=== PATIENT | female | born 1940 | race Caucasian/White ===

== ENCOUNTER 2020-06-15 11:45 | Inpatient (IN) | payer OTHER, SELFPAY ==
--- NOTE | ~2020-06-15 | CT_ITS ---
EXAMINATION: CTA chest PE protocol DATE: 06/16/2020 00:24 INDICATION: Shortness of breath. Elevated d-dimer. TECHNIQUE: Computed tomography angiography (CTA) of the chest was performed with 100 mL Omnipaque-350 intravenous contrast timed to evaluate the pulmonary arteries. Coronal maximum intensity projection 3D-reconstructions were created by the technologist. Automated exposure control and iterative reconst ruction technique were employed. Exam dose: 640.85 mGy-cm total exam DLP. COMPARISON: None. FINDINGS: There is diagnostic contrast enhancement of the pulmonary arteries and no evidence of pulmo nary embolism. Cardiomegaly. No pericardial effusion. No pleural effusion. No hilar or mediastinal mass lesion or lymphadenopathy. Mild hilar and mediastinal lymph node promine nce is likely reactive. No thoracic aortic aneurysm or dissection. There is aortic and great vessel a therosclerotic calcification as well as coronary artery calcification. There are patchy groundglass infiltrates of the upper and lower lobes primarily; differential diagnos is includes pneumonia and/or pulmonary edema. Incidental finding of cholelithiasis. Included skeletal structures are unremarkable. IMPRESSION: No evidence of pulmonary embolism Patchy bilateral groundglass infiltrates, which may be secondary to pneumonia and/or pulmonary edema Reviewed, dictated and finalized at [facility]. Reviewed, dictated and finalized at [facility]. IMPRESSION: No evidence of pulmonary embolism Patchy bilateral groundglass infiltrates, which may be secondary to pneumonia a nd/or pulmonary edema
--- NOTE | ~2020-06-15 | XR_ITS ---
EXAMINATION: XR chest 1V portable INDICATION: Shortness of breath, COVID pneumonia TECHNIQUE: Portable AP chest at 0620 hours COMPARISON: 06/16/2020 FINDINGS: There are airspace opacities throughout all lung zones. No pleural effusion or pneumothorax is identified. Cardiomegaly is noted. There is osteoarthritis of the shoulders. IMPRESSION: 1. Diffuse lung disease, in a distribution consistent with COVID 19 pneumonia. Reviewed, dictated and finalized at location [facility]. AL TECHNICIAN
--- NOTE | ~2020-06-15 | US_ITS ---
EXAMINATION: US venous doppler [facility] DATE: 06/15/2020 16:38 INDICATION: Pelvic pain. TECHNIQUE: Grayscale ultrasound images without and with compression and Doppler ultrasound images of the bilateral lower extremity veins were obtained. COMPARISON: None. FINDINGS: The visualized portions of right common femoral vein, profunda (deep) femoral vein, femoral vein, pop liteal vein, peroneal veins, posterior tibial veins, and greater saphenous vein outflow are patent. The visualized portions of left common femoral vein, profunda femoral vein, femoral vein, popliteal v ein, peroneal veins, posterior tibial veins, and greater saphenous vein outflow are patent. IMPRESSION: 1. No deep venous thrombosis. Reviewed, dictated and finalized at location [facility].
--- NOTE | 2020-06-15 12:05 | ADMGEN ---
This patient, Rashmi Diaz, was admitted to 3 [facility] Surg Room 325-01 @ 1139. Patient/family oriented to hospital policies and general routines including ID bracelet, bed and alarms, visiting hours, pain management, procedures, bathroom and other care routines, personal items, smoking policy, room service/diet, and visiting hours. Information on how to activate the Rapid Response Team has been discussed. Patient/Family are encouraged to report perceived risks to care and to ask questions if they do not understand what they are told or what they should do.
[2020-06-15 12:06] VITALS: BMI 31.4
--- NOTE | 2020-06-15 13:04 | PM.IMHP ---
H&P: HPI History of Present Illness Date/Time: 06/15/20 13:04 Chief complaint: COVID/hypoxia Narrative: Rashmi Diaz is a 80 year old female Who has a history of having a prolapsed bladder with 2 surgeries the last 1 being earlier this year for a bladder suspension in February of this year. The patient stated that she has been up several times during the night and your to urinate she does not get much sleep. The patient stated for the past 3 days she has had some really deep vaginal pain like muscle spasms. She went to [facility] yesterday because of this pain. She said that she had a vaginal exam and it was excruciating pain. The patient had a chest x-ray at [facility] that was read as the cardiomediastinal silhouette is not enlarged. Mild atherosclerotic aorta. Bilateral perihilar reticular and ground-glass infiltrates correlate with any signs and symptoms of to atypical pneumonia. This x-ray was taken yesterday. No significant pleural effusion no pneumothorax no significant bony abnormalities. Patient had a CT of the abdomen and pelvis with contrast. The patient was found to be hypoxic and was placed on oxygen at 2 L per nasal cannula. The patient typically does not have any respiratory problems and is not on any oxygen or nebulizer treatments at home. Her main complaint was the vaginal discomfort not shortness of breath. She denies any fever chills. Patient had a CT of the abdomen pelvis with contrast. The lower lung showed some pulmonary fibrosis with honeycombing and peripheral ground-glass infiltrates. Liver hepatomegaly cholelithiasis with no direct signs of acute cholecystitis no lesions of the spleen no focal lesions the pancreas no focal lesions of adrenal glands no focal lesions of the kidneys nonobstructive pattern to the stomach and bowel appendix post appendectomy: Rectum mild constipation large amount of stool in within the cecum. Uterus and head neck is post hysterectomy. Urine Simmering bladder habits thickening of the wall could suggest cystitis correlate with UA. Pelvic space no free fluid status post infraumbilical left Kimberly medial laparotomy. The patient was tested for covid 19 was found to be positive. The patient was started on Rocephin subcu Lovenox IV fluids Decadron. Patient's blood pressure was elevated to 179/92 yesterday but has come down to 138/70. The patient's O2 saturation without oxygen was 89% and increased and Increased to 96% with the oxygen. The patient stated that her pelvic pain is somewhat better. Patient is being admitted for covid 19 elevated D-dimer and UTI Review of Systems Review of Systems: All systems reviewed & are unremarkable except as noted in HPI and below Constitutional: Constitutional: Reports as per HPI and Reports no additional constitutional complaints Eyes: Eyes: Reports as per HPI and Reports no additional eye complaints ENT: Reports system reviewed and no additional complaints, except as documented and Reports Normal hearing present Cardiovascular: Cardiovascular: Reports no additional cardiovascular complaints Respiratory: Respiratory: Reports no additional respiratory complaints and Reports no additional respiratory complaints Gastrointestinal: Gastrointestinal: Reports as per HPI and Reports no additional gastrointestinal complaints Musculoskeletal: Musculoskeletal: Reports no additional musculoskeletal complaints Integumentary/Breasts: Skin/Breast: Reports system reviewed and no additional complaints, except as docu and Reports as per HPI Neurologic: Reports system reviewed and no additional complaints, except as documented, Reports as per HPI and Reports Normal hearing present Psychiatric: Psychiatric: Reports no additional psychiatric complaints and Reports as per HPI Endocrine: Endocrine: Reports no additional endocrine complaints Hematologic/Lymphatic: Hematologic/Lymphatic: Reports no additional hematologic/lymphatic complaints Aller
[2020-06-15 13:39] LABS: Alanine Aminotransferase 23 U/L (4-35); Estimated CRCL calculation 39 ml/min; Estimated Glomerular Filt Rate 53
[2020-06-15 13:40] LABS: Alanine Aminotransferase 23 U/L (4-35); Albumin Level 4.1 g/dL (3.5-5.1); Alkaline Phosphatase 96 U/L (38-126); Anion Gap 12 mmol/L (8-16); Aspartate Amino Transferase 28 U/L (14-36); Bilirubin,Total 0.3 mg/dL (0.2-1.3); Blood Urea Nitrogen 22 mg/dL (7-17); Calcium 8.7 mg/dL (8.4-10.2); Carbon Dioxide 22 mmol/L (22-30); Chloride 104 mmol/L (98-107); Estimated CRCL calculation 36 ml/min; Estimated Glomerular Filt Rate 48; Glucose 149 mg/dL (65-105); Magnesium 2.3 mg/dL (1.6-2.3); Potassium 4.6 mmol/L (3.4-5.0); Sodium 138 mmol/L (137-145)
[2020-06-15 13:41] LABS: Lactic Acid Reflex 1.1 mmol/L (0.7-2.1)
[2020-06-15 13:47] LABS: Hemoglobin A1C 6.3 % (<5.7)
[2020-06-15 14:04] LABS: Glucose Point of Care 135 (65-105)
[2020-06-15 14:52] LABS: Add Urine Microscopic? YES; Appearance Urine Clear (Clear); Bacteria Urine Trace /hpf; Bilirubin Urine Negative (Negative); Blood Urine Negative (Negative); Color Urine Yellow (Yellow); Glucose Urine UA Negative (Negative); Ketones Urine Negative (Negative); Leukocyte Esterase Ur 1+ LEU/UL (Negative); Mucus Urine Rare /lpf; Nitrate Urine Negative (Negative); Protein Urine 1+ mg/dL (Negative); Specific Grav Ur 1.016 (1.001-1.035); Squamous Epithelial Cell Urine Occasional /hpf (Few); Urobilinogen Urine Negative mg/dL (<2.0); WBC Urine 51-75 /hpf
[2020-06-15] MEDS: DEXAMETHASONE SOD PHOS INJ 4 MG/ML VIAL 6 MG IV PUSH (15:02)
[2020-06-15] MEDS: ENOXAPARIN 80 MG/0.8 ML SYRINGE SUB-Q (15:02)
[2020-06-15] MEDS: BISACODYL 5 MG TABLET EC PO (15:02)
[2020-06-15] MEDS: REMDESIVIR 200 MG/NS 250 ML 200 MG/250 ML BAG 250 MG IVPB (15:20)
[2020-06-15 16:00] VITALS: BP 170/90; PULSE 110; RESP 20; TEMP 37.5; O2SAT 91
[2020-06-15 17:18] LABS: Glucose Point of Care 190 (65-105)
[2020-06-15] MEDS: DOCUSATE SODIUM 100 MG CAPSULE PO (17:42)
[2020-06-15] MEDS: GABAPENTIN 100 MG CAPSULE PO (17:42)
[2020-06-15] MEDS: hydrALAZINE HCL 20 MG/ML VIAL 10 MG IV PUSH (18:19)
[2020-06-15 18:55] VITALS: BP 150/88
[2020-06-15 20:30] VITALS: BP 175/98; PULSE 122; RESP 20; TEMP 36.9; O2SAT 92
[2020-06-15 20:40] VITALS: O2SAT 93
[2020-06-15 23:54] VITALS: BP 173/88; PULSE 118; RESP 20; TEMP 36.7; O2SAT 93
[2020-06-16 00:05] LABS: Glucose Point of Care 233 (65-105)
[2020-06-16] MEDS: ENOXAPARIN 80 MG/0.8 ML SYRINGE SUB-Q ×2 (01:27→14:12)
[2020-06-16] MEDS: LEVOTHYROXINE SODIUM 75 MCG TABLET PO (05:29)
[2020-06-16 06:00] VITALS: BP 174/88; PULSE 107; RESP 20; TEMP 36.8; O2SAT 90
[2020-06-16 06:39] LABS: Basophils Percent Auto 0.2 % (0.2-1.2); Hemoglobin 12.3 g/dL (12.0-15.0); Immature Granulocyte Absolute 0.35 K/mm3 (0.00-0.031); Immature Granulocyte Percent A 2.4 % (0-0.5); Lymphocytes Absolute Auto 1.43 K/mm3 (0.9-3.2); Lymphocytes Percent Auto 9.6 % (18.3-44.2); Mean Corpuscular HGB Conc 33.2 g/dl (32-36); Mean Corpuscular Hemoglobin 29.6 pg (26-34); Mean Corpuscular Volume 89.2 fl (80-100); Mean Platelet Volume 9.5 fl (7.4-10.4); Monocytes Absolute Auto 0.7 K/mm3 (0.1-0.6); Monocytes Percent Auto 4.5 % (2.6-8.5); Neutrophils Absolute Auto 12.4 K/mm3 (1.3-6.7); Neutrophils Percent Auto 83.3 % (45.5-73.1); Platelet Count Result 273 k/mm3 (150-375); Red Blood Count 4.15 M/mm3 (4.2-5.4); Red Cell Distribution Width 14.2 % (11.5-14.5); White Blood Count 14.8 K/mm3 (4.5-10.0)
[2020-06-16 06:54] LABS: Alanine Aminotransferase 23 U/L (4-35); Albumin Level 3.7 g/dL (3.5-5.1); Alkaline Phosphatase 93 U/L (38-126); Anion Gap 9 mmol/L (8-16); Aspartate Amino Transferase 33 U/L (14-36); Bilirubin,Total 0.2 mg/dL (0.2-1.3); Blood Urea Nitrogen 23 mg/dL (7-17); Calcium 8.8 mg/dL (8.4-10.2); Carbon Dioxide 23 mmol/L (22-30); Chloride 105 mmol/L (98-107); Estimated CRCL calculation 43 ml/min; Estimated Glomerular Filt Rate 60; Glucose 125 mg/dL (65-105); Lipase 96 U/L (23-300); Magnesium 2.1 mg/dL (1.6-2.3); Potassium 4.5 mmol/L (3.4-5.0); Sodium 137 mmol/L (137-145)
[2020-06-16 06:57] LABS: Lactic Acid Reflex 1.2 mmol/L (0.7-2.1)
[2020-06-16 08:00] VITALS: BP 138/92; PULSE 104; RESP 18; TEMP 36.8; O2SAT 91
[2020-06-16] MEDS: MIRABEGRON 50 MG ER TABLET PO (08:43)
[2020-06-16] MEDS: ISOSORBIDE MONONITRATE 30 MG TAB.ER.24H PO (08:43)
[2020-06-16] MEDS: GABAPENTIN 100 MG CAPSULE PO ×3 (08:43→18:15)
[2020-06-16] MEDS: MULTIVITAMINS /C LUTEIN (CENTRUM SILVER) TABLET *BKC 1 TAB PO (08:43)
[2020-06-16] MEDS: IRBESARTAN 150 MG TABLET 300 MG PO (08:43)
[2020-06-16] MEDS: DOCUSATE SODIUM 100 MG CAPSULE PO ×2 (08:44→18:15)
[2020-06-16] MEDS: DEXAMETHASONE SOD PHOS INJ 4 MG/ML VIAL 6 MG IV PUSH (08:44)
[2020-06-16] MEDS: amLODIPine BESYLATE 5 MG TABLET PO (08:44)
[2020-06-16] MEDS: CYANOCOBALAMIN 1,000 MCG TABLET 1000 MCG PO (08:44)
[2020-06-16 08:58] LABS: Glucose Point of Care 106 (65-105)
[2020-06-16 11:30] VITALS: BP 138/72; BP 148/82; BP 152/78
[2020-06-16 12:00] VITALS: BP 146/80; PULSE 105; RESP 18; TEMP 36.8; O2SAT 90
[2020-06-16 12:39] LABS: Glucose Point of Care 166 (65-105)
--- NOTE | 2020-06-16 15:11 | PHAR ---
patient had positive covid test with new onset of symptoms at [facility] 06-14-20. Patient is on supplemental O2. Did not receive remdesivir there. Did receive one dose of Dexamethasone however keep order for 10 doses here. EVONNE JIMENEZ
[2020-06-16 16:00] VITALS: BP 132/78; PULSE 105; RESP 18; TEMP 37; O2SAT 90
[2020-06-16] MEDS: REMDESIVIR 100 MG/NS 250 ML 100 MG/250 ML BAG 250 MG IVPB (16:26)
--- NOTE | 2020-06-16 16:35 | PM.IMPN ---
Progress Note: A&P Assessment and Plan (1) COVID-19: Code(s): U07.1 - COVID-19 Status: Acute Assessment and Plan: ------patient has known covid. She is currently on 3 L of oxygen and feels better. We will continue room does severe and Decadron at this time. She little tachycardic but likely due to current infection. Will monitor closely, CTA shows no PE. Continue Lovenox (2) Hypothyroidism: Code(s): E03.9 - Hypothyroidism, unspecified Status: Chronic Assessment and Plan: -----TSH within normal limits. Continue levothyroxine (3) HTN (hypertension) with goal to be determined: Code(s): I10 - Essential (primary) hypertension Status: Chronic Assessment and Plan: ------last blood pressure 146/80. Continue with isosorbide, Avapro and amlodipine (4) DM2 (diabetes mellitus, type 2): Code(s): E11.9 - Type 2 diabetes mellitus without complications Status: Chronic Assessment and Plan: -----last glucose 166. Hold metformin and continue Accu-Cheks AC and HS (5) UTI (urinary tract infection): Code(s): N39.0 - Urinary tract infection, site not specified Status: Acute Assessment and Plan: ------ Patient has urinary frequency and frequent UTIs. Continue ceftriaxone and await urine culture Time Spent With Patient Time with patient: 25 - 35 minutes Subjective Date/time seen: 06/16/20 16:35 Interval history: Pt is a 80-year-old female here for COVID-19 pneumonia. Patient was seen today and states she is doing okay. She does not have any shortness of breath at rest or when going to the commode but has not done much other than that. She has been utilizing oxygen and feeling okay. She is eating and drinking well now. She feels little constipated. No chest pain Review of Systems Review of Systems: All systems reviewed & are unremarkable except as noted in HPI and below Exam Narrative: Exam Narrative: General: Well developed well nourished patient in NAD HEENT: normocephalic Neck: supple Neuro: Alert and oriented x4 CV: Tachycardic 110 on exam Resp:CTA, please note a disposable stethoscope was used which lower sensitivity Abd: Soft, non distended. No pain to palpation. Positive bowel sounds Extremities: No swelling, erythema, or pain to palpation. Objective Data Vital Signs Vital Signs: Vital Signs - 24 hr 06/15/20 18:55 06/15/20 20:30 06/15/20 20:40 Temperature 98.4 F Pulse Rate 122 H Respiratory Rate 20 Blood Pressure 150/88 H 175/98 H Pulse Oximetry 92 93 06/15/20 23:54 06/16/20 06:00 06/16/20 08:00 Temperature 98.1 F 98.2 F 98.2 F Pulse Rate 118 H 107 H 104 H Respiratory Rate 20 20 18 Blood Pressure 173/88 H 174/88 H 138/92 H Pulse Oximetry 93 90 91 06/16/20 11:30 06/16/20 12:00 Temperature 98.2 F Pulse Rate 105 H Respiratory Rate 18 Blood Pressure 138/72 146/80 H Pulse Oximetry 90 Intake/Output Intake/Output: Intake & Output 06/13/20 06/14/20 06/15/20 06/16/20 23:59 23:59 23:59 23:59 Intake Total 1350 750 Output Total 260 1500 Balance 1090 -750 Meds/Results Medications: Active Medications Generic Name Dose Route Start Last Admin Trade Name Freq PRN Reason Stop Dose Admin Albuterol 2 puff 06/15/20 13:03 Albuterol Sulfate (*Sp) Aerosol 1 Puff INHALATION QIDRT PRN Shortness Of Breath Amlodipine Besylate 5 mg 06/16/20 09:00 06/16/20 08:44 Amlodipine Besylate 5 Mg Tablet PO 5 mg DAILY NOHEMI Administration Cyanocobalamin 1,000 mcg 06/16/20 09:00 06/16/20 08:44 Cyanocobalamin 1,000 Mcg Tablet PO 1,000 mcg DAILY NOHEMI Administration Dexamethasone Sodium Phosphate 6 mg 06/15/20 13:45 06/16/20 08:44 Dexamethasone Sod Phos Inj 4 Mg/Ml Vial IV PUSH 06/24/20 09:01 6 mg DAILY NOHEMI Administration Dextrose 12.5 gm 06/15/20 13:24 Dextrose 50% 25 Gm/50 Ml Syringe IV PUSH PRN PRN H
--- NOTE | 2020-06-16 16:45 | ECG_ITS ---
Measurements Intervals Geff Rate: 108 P: 59 AL: 156 QRS: -4 QRSD: 81 T: 61 QT: 320 QTc: 431 Interpretive Statements SINUS TACHYCARDIA POSSIBLE LEFT ATRIAL ENLARGEMENT BORDERLINE ST ABNORMALITY- ANTEROLAT/HIGH LAT LEADS BASELINE ARTIFACT- II, III, AVF ABNORMAL ECG Electronically Signed On 06-16-2020 19:28:50 CDT by Tyler Preciado D.O.
[2020-06-16 18:48] LABS: Glucose Point of Care 183 (65-105)
[2020-06-16 20:00] VITALS: BP 146/71; PULSE 90; RESP 18; RESP 20; TEMP 36.6; O2SAT 95; O2SAT 98
[2020-06-16 22:38] LABS: Glucose Point of Care 162 (65-105)
[2020-06-17] VITALS (7 sets, daily range): BP systolic 143–169; BP diastolic 76–87; PULSE 85–110; RESP 16–20; TEMP 36.6–36.8; O2SAT 86–95
[2020-06-17] MEDS: ENOXAPARIN 80 MG/0.8 ML SYRINGE SUB-Q ×2 (02:03→15:02)
[2020-06-17 06:02] LABS: Hematocrit 39.3 % (37.0-47.0); Hemoglobin 12.9 g/dL (12.0-15.0); Mean Corpuscular HGB Conc 32.8 g/dl (32-36); Mean Corpuscular Hemoglobin 29.1 pg (26-34); Mean Corpuscular Volume 88.5 fl (80-100); Mean Platelet Volume 9.6 fl (7.4-10.4); Platelet Count Result 327 k/mm3 (150-375); Red Blood Count 4.44 M/mm3 (4.2-5.4); Red Cell Distribution Width 14.1 % (11.5-14.5); White Blood Count 12.4 K/mm3 (4.5-10.0)
[2020-06-17 06:11] LABS: Alanine Aminotransferase 24 U/L (4-35); Albumin Level 3.8 g/dL (3.5-5.1); Alkaline Phosphatase 93 U/L (38-126); Anion Gap 9 mmol/L (8-16); Aspartate Amino Transferase 30 U/L (14-36); Bilirubin,Total 0.3 mg/dL (0.2-1.3); Blood Urea Nitrogen 26 mg/dL (7-17); Carbon Dioxide 29 mmol/L (22-30); Chloride 103 mmol/L (98-107); Estimated CRCL calculation 39 ml/min; Estimated Glomerular Filt Rate 53; Glucose 103 mg/dL (65-105); Magnesium 2.3 mg/dL (1.6-2.3); Potassium 4.1 mmol/L (3.4-5.0); Sodium 141 mmol/L (137-145)
[2020-06-17] MEDS: LEVOTHYROXINE SODIUM 75 MCG TABLET PO (07:00)
[2020-06-17] MEDS: ISOSORBIDE MONONITRATE 30 MG TAB.ER.24H PO (09:27)
[2020-06-17] MEDS: GABAPENTIN 100 MG CAPSULE PO ×3 (09:27→18:24)
[2020-06-17] MEDS: MULTIVITAMINS /C LUTEIN (CENTRUM SILVER) TABLET *BKC 1 TAB PO (09:27)
[2020-06-17] MEDS: MIRABEGRON 50 MG ER TABLET PO (09:27)
[2020-06-17] MEDS: IRBESARTAN 150 MG TABLET 300 MG PO (09:27)
[2020-06-17] MEDS: amLODIPine BESYLATE 5 MG TABLET PO (09:27)
[2020-06-17] MEDS: DEXAMETHASONE SOD PHOS INJ 4 MG/ML VIAL 6 MG IV PUSH (09:28)
[2020-06-17] MEDS: DOCUSATE SODIUM 100 MG CAPSULE PO ×2 (10:45→18:24)
[2020-06-17] MEDS: CYANOCOBALAMIN 1,000 MCG TABLET 1000 MCG PO (10:45)
[2020-06-17 13:23] LABS: Glucose Point of Care 143 (65-105)
[2020-06-17] MEDS: REMDESIVIR 100 MG/NS 250 ML 100 MG/250 ML BAG 250 MG IVPB (15:38)
--- NOTE | 2020-06-17 16:37 | PM.IMPN ---
Progress Note: A&P Assessment and Plan (1) COVID-19: Code(s): U07.1 - COVID-19 Status: Acute Assessment and Plan: ------patient has known covid. She is currently on 3 L of oxygen and feels better. We will continue Remdesivir and Decadron at this time. Will monitor closely, CTA shows no PE. Continue Lovenox. Wean o2 as tolerated (2) Hypothyroidism: Code(s): E03.9 - Hypothyroidism, unspecified Status: Chronic Assessment and Plan: -----TSH within normal limits. Continue levothyroxine (3) HTN (hypertension) with goal to be determined: Code(s): I10 - Essential (primary) hypertension Status: Chronic Assessment and Plan: ------last blood pressure 144/77. Continue with isosorbide, Avapro and amlodipine (4) DM2 (diabetes mellitus, type 2): Code(s): E11.9 - Type 2 diabetes mellitus without complications Status: Chronic Assessment and Plan: -----last glucose 143. Hold metformin and continue Accu-Cheks AC and HS (5) UTI (urinary tract infection): Code(s): N39.0 - Urinary tract infection, site not specified Status: Acute Assessment and Plan: ------ Patient has urinary frequency and frequent UTIs. UA neg, will stop abx Subjective Date/time seen: 06/17/20 16:37 Interval history: Pt is a 80-year-old female here for COVID-19 pneumonia. Patient was seen today and states she is doing okay. She continues to have a dry cough. She does not have any shortness of breath at rest or when going to the commode but has not done much other than that. She has been utilizing oxygen and feeling okay. She is eating and drinking well now. She feels little constipated. No chest pain or BM Exam Narrative: Exam Narrative: General: Well developed well nourished patient in NAD HEENT: normocephalic Neck: supple Neuro: Alert and oriented x4 CV: RRR Resp:CTA, please note a disposable stethoscope was used which lower sensitivity Abd: Soft, non distended. No pain to palpation. Positive bowel sounds Extremities: No swelling, erythema, or pain to palpation. Objective Data Vital Signs Vital Signs: Vital Signs - 24 hr 06/16/20 20:00 06/17/20 00:00 06/17/20 04:00 Temperature 97.8 F 97.9 F 98.1 F Pulse Rate 90 90 85 Respiratory Rate 20 20 20 Blood Pressure 146/71 H 153/87 H 143/76 H Pulse Oximetry 95 94 95 06/17/20 09:00 06/17/20 13:00 Temperature 97.8 F 98.2 F Pulse Rate 93 92 Respiratory Rate 18 16 Blood Pressure 169/83 H 144/77 H Pulse Oximetry 94 91 Intake/Output Intake/Output: Intake & Output 06/14/20 06/15/20 06/16/20 06/17/20 23:59 23:59 23:59 23:59 Intake Total 1350 1980 730 Output Total 260 1500 450 Balance 1090 480 280 Meds/Results Medications: Active Medications Generic Name Dose Route Start Last Admin Trade Name Freq PRN Reason Stop Dose Admin Albuterol 2 puff 06/15/20 13:03 Albuterol Sulfate (*Sp) Aerosol 1 Puff INHALATION QIDRT PRN Shortness Of Breath Amlodipine Besylate 5 mg 06/16/20 09:00 06/17/20 09:27 Amlodipine Besylate 5 Mg Tablet PO 5 mg DAILY NOHEMI Administration Cyanocobalamin 1,000 mcg 06/16/20 09:00 06/17/20 10:45 Cyanocobalamin 1,000 Mcg Tablet PO 1,000 mcg DAILY NOHEMI Administration Dexamethasone Sodium Phosphate 6 mg 06/15/20 13:45 06/17/20 09:28 Dexamethasone Sod Phos Inj 4 Mg/Ml Vial IV PUSH 06/24/20 09:01 6 mg DAILY NOHEMI Administration Dextrose 12.5 gm 06/15/20 13:24 Dextrose 50% 25 Gm/50 Ml Syringe IV PUSH PRN PRN Hypoglycemia Protocol Docusate Sodium 100 mg 06/15/20 17:00 06/17/20 10:45 Docusate Sodium 100 Mg Capsule PO 100 mg BID NOHEMI Administration Enoxaparin Sodium 80 mg 06/15/20 14:00 06/17/20 15:02 Enoxaparin 80 Mg/0.8 Ml Syringe SUB-Q 80 mg Q12H NOHEMI Administration Gabapentin 100 mg 06/15/20 17:00 06/17/20 12:42 Gabapentin 100 Mg Capsule PO 100 mg
[2020-06-17] MEDS: polyethylene glycoL 3350 17 GM POWD.PACK PO (18:24)
[2020-06-17] MEDS: INSULIN ASPART (*BKC) 100 UNITS/ML SUB-Q (18:28)
[2020-06-17 18:41] LABS: Glucose Point of Care 217 (65-105)
[2020-06-17 18:41] LABS: Glucose Point of Care 233 (65-105)
[2020-06-17 22:20] LABS: Glucose Point of Care 168 (65-105)
[2020-06-17] MEDS: guaiFENesin 12 HR 600 MG TABCR PO (22:20)
[2020-06-18] VITALS (7 sets, daily range): BP systolic 138–173; BP diastolic 73–96; PULSE 80–98; RESP 18–20; TEMP 36.4–36.9; O2SAT 90–94
[2020-06-18 00:19] LABS: Glucose Point of Care 90 (65-105)
[2020-06-18] MEDS: ENOXAPARIN 80 MG/0.8 ML SYRINGE SUB-Q ×2 (03:26→13:20)
[2020-06-18] MEDS: LEVOTHYROXINE SODIUM 75 MCG TABLET PO (05:53)
[2020-06-18 06:29] LABS: Alanine Aminotransferase 25 U/L (4-35)
[2020-06-18] MEDS: MULTIVITAMINS /C LUTEIN (CENTRUM SILVER) TABLET *BKC 1 TAB PO (08:19)
[2020-06-18] MEDS: CYANOCOBALAMIN 1,000 MCG TABLET 1000 MCG PO (08:19)
[2020-06-18] MEDS: ISOSORBIDE MONONITRATE 30 MG TAB.ER.24H PO (08:19)
[2020-06-18] MEDS: MIRABEGRON 50 MG ER TABLET PO (08:19)
[2020-06-18] MEDS: IRBESARTAN 150 MG TABLET 300 MG PO (08:19)
[2020-06-18] MEDS: guaiFENesin 12 HR 600 MG TABCR PO ×2 (08:19→20:44)
[2020-06-18] MEDS: GABAPENTIN 100 MG CAPSULE PO ×3 (08:19→16:31)
[2020-06-18] MEDS: polyethylene glycoL 3350 17 GM POWD.PACK PO (08:20)
[2020-06-18] MEDS: DOCUSATE SODIUM 100 MG CAPSULE PO ×2 (08:20→16:31)
[2020-06-18] MEDS: amLODIPine BESYLATE 5 MG TABLET PO (08:20)
[2020-06-18] MEDS: DEXAMETHASONE SOD PHOS INJ 4 MG/ML VIAL 6 MG IV PUSH (08:20)
[2020-06-18 08:41] LABS: Glucose Point of Care 85 (65-105)
[2020-06-18 10:16] LABS: Estimated CRCL calculation 43 ml/min; Estimated Glomerular Filt Rate 60
[2020-06-18 12:44] LABS: Glucose Point of Care 167 (65-105)
--- NOTE | 2020-06-18 15:12 | PM.IMPN ---
Progress Note: A&P Assessment and Plan (1) COVID-19: Code(s): U07.1 - COVID-19 Status: Acute Assessment and Plan: ------patient has known covid. She is currently on 4.5 L of oxygen and feels better. We will continue Remdesivir and Decadron at this time. Will monitor closely, CTA shows no PE. Continue Lovenox. Wean o2 as tolerated. Repeat CXR tomorrow (2) Hypothyroidism: Code(s): E03.9 - Hypothyroidism, unspecified Status: Chronic Assessment and Plan: -----TSH within normal limits. Continue levothyroxine (3) HTN (hypertension) with goal to be determined: Code(s): I10 - Essential (primary) hypertension Status: Chronic Assessment and Plan: ------last blood pressure 142/73. Continue with isosorbide, Avapro and amlodipine (4) DM2 (diabetes mellitus, type 2): Code(s): E11.9 - Type 2 diabetes mellitus without complications Status: Chronic Assessment and Plan: -----last glucose 167. Hold metformin and continue Accu-Cheks AC and HS (5) UTI (urinary tract infection): Code(s): N39.0 - Urinary tract infection, site not specified Status: Acute Assessment and Plan: ------ Patient has urinary frequency and frequent UTIs. UA neg, abx discontinued. Subjective Date/time seen: 06/18/20 15:12 Interval history: Pt is a 80-year-old female here for COVID-19 pneumonia. Patient was seen today and states she is doing okay. She thinks her cough is better and she was up and walking a bit today. She had her meals in the chair. No BM again today. She is eating and drinking well now. She feels little constipated. No CP Exam Narrative: Exam Narrative: General: Well developed well nourished patient in NAD HEENT: normocephalic Neck: supple Neuro: Alert and oriented x4 CV: RRR Resp:CTA, please note a disposable stethoscope was used which lower sensitivity Abd: Soft, non distended. No pain to palpation. Positive bowel sounds Extremities: No swelling, erythema, or pain to palpation. Objective Data Vital Signs Vital Signs: Vital Signs - 24 hr 06/17/20 16:00 06/17/20 20:00 06/17/20 23:45 Temperature 98.2 F 97.8 F Pulse Rate 98 110 H Respiratory Rate 18 20 Blood Pressure 156/76 H 163/79 H Pulse Oximetry 90 90 86 L 06/18/20 00:00 06/18/20 04:00 06/18/20 08:00 Temperature 97.6 F 97.9 F 97.8 F Pulse Rate 95 80 88 Respiratory Rate 20 18 20 Blood Pressure 157/83 H 152/96 H 173/80 H Pulse Oximetry 90 93 92 06/18/20 12:00 Temperature 97.8 F Pulse Rate 92 Respiratory Rate 20 Blood Pressure 142/73 H Pulse Oximetry 91 Intake/Output Intake/Output: Intake & Output 06/15/20 06/16/20 06/17/20 06/18/20 23:59 23:59 23:59 23:59 Intake Total 1350 1980 1504 220 Output Total 260 1500 950 100 Balance 1090 480 554 120 Meds/Results Medications: Active Medications Generic Name Dose Route Start Last Admin Trade Name Freq PRN Reason Stop Dose Admin Albuterol 2 puff 06/15/20 13:03 Albuterol Sulfate (*Sp) Aerosol 1 Puff INHALATION QIDRT PRN Shortness Of Breath Amlodipine Besylate 5 mg 06/16/20 09:00 06/18/20 08:20 Amlodipine Besylate 5 Mg Tablet PO 5 mg DAILY NOHEMI Administration Cyanocobalamin 1,000 mcg 06/16/20 09:00 06/18/20 08:19 Cyanocobalamin 1,000 Mcg Tablet PO 1,000 mcg DAILY NOHEMI Administration Dexamethasone Sodium Phosphate 6 mg 06/15/20 13:45 06/18/20 08:20 Dexamethasone Sod Phos Inj 4 Mg/Ml Vial IV PUSH 06/24/20 09:01 6 mg DAILY NOHEMI Administration Dextrose 12.5 gm 06/15/20 13:24 Dextrose 50% 25 Gm/50 Ml Syringe IV PUSH PRN PRN Hypoglycemia Protocol Docusate Sodium 100 mg 06/15/20 17:00 06/18/20 08:20 Docusate Sodium 100 Mg Capsule PO 100 mg BID NOHEMI Administration Enoxaparin Sodium 80 mg 06/15/20 14:00 06/18/20 13:20 Enoxaparin 80 Mg/0.8 Ml Syringe SUB-Q 80 mg Q12H NOHEMI Administration Sukumar
[2020-06-18] MEDS: REMDESIVIR 100 MG/NS 250 ML 100 MG/250 ML BAG 250 MG IVPB (15:19)
[2020-06-18] MEDS: INSULIN ASPART (*BKC) 100 UNITS/ML SUB-Q (17:53)
[2020-06-18 18:11] LABS: Glucose Point of Care 230 (65-105)
[2020-06-18 21:34] LABS: Glucose Point of Care 279 (65-105)
[2020-06-19] VITALS (7 sets, daily range): BP systolic 127–156; BP diastolic 74–93; PULSE 77–99; RESP 18–20; TEMP 36.4–36.9; O2SAT 90–94
[2020-06-19] MEDS: ENOXAPARIN 80 MG/0.8 ML SYRINGE SUB-Q ×2 (01:08→14:42)
--- NOTE | 2020-06-19 01:48 | PC.NURSE ---
Daylight Savings Time For Daylight Savings Time Ending in the Fall - Clocks are moved back. For Daylight Savings Time Beginning in the Spring - Clocks are moved ahead. For [facility], the time of change occurs at 0200 hrs. Time is taken from the sql server dba developer. This entry on the patient's chart recognizes the change in time reflected during documentation. Example: 2 entries for vital signs may be charted for 0200 hrs.
[2020-06-19] MEDS: LEVOTHYROXINE SODIUM 75 MCG TABLET PO (05:29)
[2020-06-19 06:30] LABS: Hematocrit 35.9 % (37.0-47.0); Hemoglobin 11.9 g/dL (12.0-15.0); Mean Corpuscular HGB Conc 33.1 g/dl (32-36); Mean Corpuscular Hemoglobin 29.5 pg (26-34); Mean Corpuscular Volume 88.9 fl (80-100); Mean Platelet Volume 9.7 fl (7.4-10.4); Platelet Count Result 327 k/mm3 (150-375); Red Blood Count 4.04 M/mm3 (4.2-5.4); Red Cell Distribution Width 14.1 % (11.5-14.5); White Blood Count 13.2 K/mm3 (4.5-10.0)
[2020-06-19 06:47] LABS: D Dimer 0.68 ug/mL (<0.48)
[2020-06-19 06:55] LABS: Alanine Aminotransferase 25 U/L (4-35); Albumin Level 3.1 g/dL (3.5-5.1); Alkaline Phosphatase 81 U/L (38-126); Anion Gap 8 mmol/L (8-16); Aspartate Amino Transferase 22 U/L (14-36); Bilirubin,Total 0.3 mg/dL (0.2-1.3); Blood Urea Nitrogen 30 mg/dL (7-17); CRP 2.7 mg/dL (<1.0); Calcium 8.8 mg/dL (8.4-10.2); Carbon Dioxide 25 mmol/L (22-30); Chloride 105 mmol/L (98-107); Estimated CRCL calculation 43 ml/min; Estimated Glomerular Filt Rate 60; Glucose 96 mg/dL (65-105); Potassium 4.3 mmol/L (3.4-5.0); Sodium 138 mmol/L (137-145)
[2020-06-19 08:42] LABS: Glucose Point of Care 103 (65-105)
[2020-06-19] MEDS: polyethylene glycoL 3350 17 GM POWD.PACK PO (09:21)
[2020-06-19] MEDS: ISOSORBIDE MONONITRATE 30 MG TAB.ER.24H PO (09:22)
[2020-06-19] MEDS: IRBESARTAN 150 MG TABLET 300 MG PO (09:22)
[2020-06-19] MEDS: GABAPENTIN 100 MG CAPSULE PO ×3 (09:22→17:37)
[2020-06-19] MEDS: DOCUSATE SODIUM 100 MG CAPSULE PO ×2 (09:23→17:37)
[2020-06-19] MEDS: MULTIVITAMINS /C LUTEIN (CENTRUM SILVER) TABLET *BKC 1 TAB PO (09:23)
[2020-06-19] MEDS: amLODIPine BESYLATE 5 MG TABLET PO (09:23)
[2020-06-19] MEDS: CYANOCOBALAMIN 1,000 MCG TABLET 1000 MCG PO (09:23)
[2020-06-19] MEDS: guaiFENesin 12 HR 600 MG TABCR PO ×2 (09:23→21:24)
[2020-06-19] MEDS: MIRABEGRON 50 MG ER TABLET PO (09:23)
[2020-06-19] MEDS: DEXAMETHASONE SOD PHOS INJ 4 MG/ML VIAL 6 MG IV PUSH (09:23)
[2020-06-19 12:26] LABS: Glucose Point of Care 179 (65-105)
--- NOTE | 2020-06-19 13:20 | PM.IMPN ---
Progress Note: A&P Assessment and Plan (1) COVID-19: Code(s): U07.1 - COVID-19 Status: Acute Assessment and Plan: ------patient has known covid. She is currently on 3L of oxygen and feels better. We will continue Remdesivir and Decadron at this time. Will monitor closely, CTA shows no PE. CXR reviewed today. Continue Lovenox. Wean o2 as tolerated. (2) Hypothyroidism: Code(s): E03.9 - Hypothyroidism, unspecified Status: Chronic Assessment and Plan: -----TSH within normal limits. Continue levothyroxine (3) HTN (hypertension) with goal to be determined: Code(s): I10 - Essential (primary) hypertension Status: Chronic Assessment and Plan: ------last blood pressure 127/77. Continue with isosorbide, Avapro and amlodipine (4) DM2 (diabetes mellitus, type 2): Code(s): E11.9 - Type 2 diabetes mellitus without complications Status: Chronic Assessment and Plan: -----last glucose 179. Hold metformin and continue Accu-Cheks AC and HS (5) UTI (urinary tract infection): Code(s): N39.0 - Urinary tract infection, site not specified Status: Acute Assessment and Plan: ------ Patient has urinary frequency and frequent UTIs but UA neg, abx discontinued. Subjective Date/time seen: 06/19/20 13:20 Interval history: Pt is a 80-year-old female here for COVID-19 pneumonia. Patient was seen today and states she is doing better every day. She is now coughing up some sputum. She has been walking to the bathroom and back and was able to have a Bm today. She had her meals in the chair.She is eating and drinking well now. No CP Exam Narrative: Exam Narrative: General: Well developed well nourished patient in NAD HEENT: normocephalic Neck: supple Neuro: Alert and oriented x4 CV: RRR Resp:CTA, please note a disposable stethoscope was used which lower sensitivity Abd: Soft, non distended. No pain to palpation. Positive bowel sounds Extremities: No swelling, erythema, or pain to palpation. Objective Data Vital Signs Vital Signs: Vital Signs - 24 hr 06/18/20 16:00 06/18/20 19:55 06/18/20 20:00 Temperature 98.5 F 98.3 F Pulse Rate 97 98 Respiratory Rate 20 20 20 Blood Pressure 141/79 H 138/79 Pulse Oximetry 91 92 90 06/19/20 00:00 06/19/20 04:00 06/19/20 08:00 Temperature 98.3 F 98.5 F 97.5 F L Pulse Rate 81 77 84 Respiratory Rate 18 18 20 Blood Pressure 131/74 148/81 H 156/93 H Pulse Oximetry 90 91 90 06/19/20 12:00 Temperature 98.0 F Pulse Rate 89 Respiratory Rate 20 Blood Pressure 127/77 Pulse Oximetry 92 Intake/Output Intake/Output: Intake & Output 06/16/20 06/17/20 06/18/20 06/19/20 23:59 23:59 23:59 22:59 Intake Total 1980 1504 1610 810 Output Total 1500 582 303 4784 Balance 519 805 3052 -240 Meds/Results Medications: Active Medications Generic Name Dose Route Start Last Admin Trade Name Freq PRN Reason Stop Dose Admin Albuterol 2 puff 06/15/20 13:03 Albuterol Sulfate (*Sp) Aerosol 1 Puff INHALATION QIDRT PRN Shortness Of Breath Amlodipine Besylate 5 mg 06/16/20 09:00 06/19/20 09:23 Amlodipine Besylate 5 Mg Tablet PO 5 mg DAILY NOHEMI Administration Cyanocobalamin 1,000 mcg 06/16/20 09:00 06/19/20 09:23 Cyanocobalamin 1,000 Mcg Tablet PO 1,000 mcg DAILY NOHEMI Administration Dexamethasone Sodium Phosphate 6 mg 06/15/20 13:45 06/19/20 09:23 Dexamethasone Sod Phos Inj 4 Mg/Ml Vial IV PUSH 06/24/20 09:01 6 mg DAILY NOHEMI Administration Dextrose 12.5 gm 06/15/20 13:24 Dextrose 50% 25 Gm/50 Ml Syringe IV PUSH PRN PRN Hypoglycemia Protocol Docusate Sodium 100 mg 06/15/20 17:00 06/19/20 09:23 Docusate Sodium 100 Mg Capsule PO 100 mg BID NOHEMI Administration Enoxaparin Sodium 80 mg 06/15/20 14:00 06/19/20 01:08 CDT Enoxaparin 80 Mg/0.8 Ml Syringe SUB-Q 80 mg Q12H NOHEMI Administratio
[2020-06-19] MEDS: REMDESIVIR 100 MG/NS 250 ML 100 MG/250 ML BAG 250 MG IVPB (14:42)
[2020-06-19] MEDS: INSULIN ASPART (*BKC) 100 UNITS/ML SUB-Q (17:37)
[2020-06-19 17:42] LABS: Glucose Point of Care 282 (65-105)
[2020-06-19 22:02] LABS: Glucose Point of Care 234 (65-105)
[2020-06-20] VITALS (9 sets, daily range): BP systolic 130–187; BP diastolic 68–108; PULSE 88–94; RESP 16–22; TEMP 35.9–36.8; O2SAT 93–100
[2020-06-20] MEDS: ENOXAPARIN 80 MG/0.8 ML SYRINGE SUB-Q ×2 (01:10→16:47)
[2020-06-20] MEDS: LEVOTHYROXINE SODIUM 75 MCG TABLET PO (06:28)
[2020-06-20 06:34] LABS: Hemoglobin 11.8 g/dL (12.0-15.0); Mean Corpuscular HGB Conc 32.8 g/dl (32-36); Mean Corpuscular Hemoglobin 29.1 pg (26-34); Mean Corpuscular Volume 88.7 fl (80-100); Mean Platelet Volume 9.5 fl (7.4-10.4); Platelet Count Result 375 k/mm3 (150-375); Red Blood Count 4.06 M/mm3 (4.2-5.4); White Blood Count 15.5 K/mm3 (4.5-10.0)
[2020-06-20 06:51] LABS: Anion Gap 5 mmol/L (8-16); Blood Urea Nitrogen 30 mg/dL (7-17); Calcium 9.2 mg/dL (8.4-10.2); Carbon Dioxide 27 mmol/L (22-30); Chloride 106 mmol/L (98-107); Estimated CRCL calculation 43 ml/min; Estimated Glomerular Filt Rate 60; Glucose 117 mg/dL (65-105); Potassium 4.8 mmol/L (3.4-5.0); Sodium 138 mmol/L (137-145)
[2020-06-20] MEDS: polyethylene glycoL 3350 17 GM POWD.PACK PO (08:51)
[2020-06-20] MEDS: IRBESARTAN 150 MG TABLET 300 MG PO (08:51)
[2020-06-20] MEDS: CYANOCOBALAMIN 1,000 MCG TABLET 1000 MCG PO (08:51)
[2020-06-20] MEDS: GABAPENTIN 100 MG CAPSULE PO ×3 (08:51→16:47)
[2020-06-20] MEDS: amLODIPine BESYLATE 5 MG TABLET PO ×2 (08:51→13:05)
[2020-06-20] MEDS: DOCUSATE SODIUM 100 MG CAPSULE PO ×2 (08:51→16:46)
[2020-06-20] MEDS: ISOSORBIDE MONONITRATE 30 MG TAB.ER.24H PO (08:52)
[2020-06-20] MEDS: guaiFENesin 12 HR 600 MG TABCR PO ×2 (08:52→21:29)
[2020-06-20] MEDS: DEXAMETHASONE SOD PHOS INJ 4 MG/ML VIAL 6 MG IV PUSH (08:52)
[2020-06-20] MEDS: MIRABEGRON 50 MG ER TABLET PO (08:52)
[2020-06-20] MEDS: MULTIVITAMINS /C LUTEIN (CENTRUM SILVER) TABLET *BKC 1 TAB PO (08:52)
--- NOTE | 2020-06-20 10:54 | PM.IMPN ---
Progress Note: A&P Assessment and Plan (1) COVID-19: Code(s): U07.1 - COVID-19 Status: Acute Assessment and Plan: ------patient has known covid. She is currently on 3L of oxygen and hopfully we can wean that off in the next day or two so she can discharge. Remdesivir has been completed and will continue Decadron at this time. Will monitor closely, CTA shows no PE. CXR reviewed today. Continue Lovenox. Wean o2 as tolerated. (2) Hypothyroidism: Code(s): E03.9 - Hypothyroidism, unspecified Status: Chronic Assessment and Plan: -----TSH within normal limits. Continue levothyroxine (3) HTN (hypertension) with goal to be determined: Code(s): I10 - Essential (primary) hypertension Status: Chronic Assessment and Plan: ------last blood pressure 187/89 before home meds. Hydralazine has been ordered for PRN but not given. Will increase home norvasc dose and Continue with isosorbide, Avapro and amlodipine (4) DM2 (diabetes mellitus, type 2): Code(s): E11.9 - Type 2 diabetes mellitus without complications Status: Chronic Assessment and Plan: -----last glucose 117. Hold metformin and continue Accu-Cheks AC and HS (5) UTI (urinary tract infection): Code(s): N39.0 - Urinary tract infection, site not specified Status: Acute Assessment and Plan: ------ Patient has urinary frequency and frequent UTIs but UA neg, abx discontinued. Subjective Date/time seen: 06/20/20 10:54 Interval history: Pt is a 80-year-old female here for COVID-19 pneumonia. Patient was seen today and states she is doing better every day. She has been walking to the bathroom and has not had SOB at rest or while walking. She is in good spirits and has been eating and drinking well. Exam Narrative: Exam Narrative: General: Well developed well nourished patient in NAD HEENT: normocephalic Neck: supple Neuro: Alert and oriented x4 CV: RRR Resp:CTA on 3L of o2, please note a disposable stethoscope was used which lower sensitivity Abd: Soft, non distended. No pain to palpation. Positive bowel sounds Extremities: No swelling, erythema, or pain to palpation. Objective Data Vital Signs Vital Signs: Vital Signs - 24 hr 06/19/20 12:00 06/19/20 16:00 06/19/20 20:00 Temperature 98.0 F 97.6 F 98.0 F Pulse Rate 89 99 87 Respiratory Rate 20 18 18 Blood Pressure 127/77 156/83 H 150/86 H Pulse Oximetry 92 94 94 06/19/20 21:11 06/20/20 00:00 06/20/20 04:00 Temperature 97.8 F 97.7 F Pulse Rate 83 90 88 Respiratory Rate 20 20 Blood Pressure 169/93 H 158/90 H Pulse Oximetry 92 96 94 06/20/20 08:00 Temperature 98.3 F Pulse Rate 89 Respiratory Rate 20 Blood Pressure 187/89 H Pulse Oximetry 94 Intake/Output Intake/Output: Intake & Output 06/18/20 06/19/20 06/19/20 06/20/20 00:59 00:59 23:59 23:59 Intake Total 700 Output Total 1300 Balance -600 Meds/Results Medications: Active Medications Generic Name Dose Route Start Last Admin Trade Name Freq PRN Reason Stop Dose Admin Albuterol 2 puff 06/15/20 13:03 Albuterol Sulfate (*Sp) Aerosol 1 Puff INHALATION QIDRT PRN Shortness Of Breath Amlodipine Besylate 5 mg 06/16/20 09:00 06/20/20 08:51 Amlodipine Besylate 5 Mg Tablet PO 5 mg DAILY NOHEMI Administration Cyanocobalamin 1,000 mcg 06/16/20 09:00 06/20/20 08:51 Cyanocobalamin 1,000 Mcg Tablet PO 1,000 mcg DAILY NOHEMI Administration Dexamethasone Sodium Phosphate 6 mg 06/15/20 13:45 06/20/20 08:52 Dexamethasone Sod Phos Inj 4 Mg/Ml Vial IV PUSH 06/24/20 09:01 6 mg DAILY NOHEMI Administration Dextrose 12.5 gm 06/15/20 13:24 Dextrose 50% 25 Gm/50 Ml Syringe IV PUSH PRN PRN Hypoglycemia Protocol Docusate Sodium 100 mg 06/15/20 17:00 06/20/20 08:51 Docusate Sodium 100 Mg Capsule PO 100 mg BID NOHEMI Administration Enoxaparin Sodium 80 mg
[2020-06-20 12:50] LABS: Glucose Point of Care 94 (65-105)
[2020-06-20 13:23] LABS: Glucose Point of Care 189 (65-105)
[2020-06-20] MEDS: INSULIN ASPART (*BKC) 100 UNITS/ML SUB-Q (17:32)
[2020-06-20 17:44] LABS: Glucose Point of Care 270 (65-105)
[2020-06-20 21:49] LABS: Glucose Point of Care 247 (65-105)
[2020-06-21] VITALS (7 sets, daily range): BP systolic 113–166; BP diastolic 59–85; PULSE 80–99; RESP 18–20; TEMP 36.4–37.1; O2SAT 91–99
[2020-06-21] MEDS: ENOXAPARIN 80 MG/0.8 ML SYRINGE SUB-Q (02:50)
[2020-06-21 06:14] LABS: Hematocrit 36.2 % (37.0-47.0); Hemoglobin 12.2 g/dL (12.0-15.0); Mean Corpuscular HGB Conc 33.7 g/dl (32-36); Mean Corpuscular Hemoglobin 30.1 pg (26-34); Mean Corpuscular Volume 89.4 fl (80-100); Mean Platelet Volume 9.5 fl (7.4-10.4); Platelet Count Result 410 k/mm3 (150-375); Red Blood Count 4.05 M/mm3 (4.2-5.4); Red Cell Distribution Width 14.2 % (11.5-14.5); White Blood Count 18.3 K/mm3 (4.5-10.0)
[2020-06-21] MEDS: LEVOTHYROXINE SODIUM 75 MCG TABLET PO (06:30)
[2020-06-21 06:34] LABS: Alanine Aminotransferase 27 U/L (4-35); Albumin Level 3.6 g/dL (3.5-5.1); Alkaline Phosphatase 77 U/L (38-126); Anion Gap 8 mmol/L (8-16); Aspartate Amino Transferase 18 U/L (14-36); Bilirubin,Total 0.3 mg/dL (0.2-1.3); Blood Urea Nitrogen 28 mg/dL (7-17); Calcium 9.3 mg/dL (8.4-10.2); Carbon Dioxide 26 mmol/L (22-30); Chloride 105 mmol/L (98-107); Estimated CRCL calculation 39 ml/min; Estimated Glomerular Filt Rate 53; Glucose 127 mg/dL (65-105); Potassium 4.5 mmol/L (3.4-5.0); Sodium 139 mmol/L (137-145)
[2020-06-21 08:52] LABS: Glucose Point of Care 98 (65-105)
[2020-06-21] MEDS: amLODIPine BESYLATE 5 MG TABLET 10 MG PO (09:53)
[2020-06-21] MEDS: DEXAMETHASONE SOD PHOS INJ 4 MG/ML VIAL 6 MG IV PUSH (09:53)
[2020-06-21] MEDS: guaiFENesin 12 HR 600 MG TABCR PO ×2 (09:54→20:13)
[2020-06-21] MEDS: polyethylene glycoL 3350 17 GM POWD.PACK PO (09:54)
[2020-06-21] MEDS: ISOSORBIDE MONONITRATE 30 MG TAB.ER.24H PO (09:54)
[2020-06-21] MEDS: GABAPENTIN 100 MG CAPSULE PO ×3 (09:54→17:49)
[2020-06-21] MEDS: MIRABEGRON 50 MG ER TABLET PO (09:54)
[2020-06-21] MEDS: IRBESARTAN 150 MG TABLET 300 MG PO (09:54)
[2020-06-21] MEDS: DOCUSATE SODIUM 100 MG CAPSULE PO (09:54)
[2020-06-21] MEDS: CYANOCOBALAMIN 1,000 MCG TABLET 1000 MCG PO (09:54)
[2020-06-21] MEDS: MULTIVITAMINS /C LUTEIN (CENTRUM SILVER) TABLET *BKC 1 TAB PO (09:54)
[2020-06-21 13:04] LABS: Glucose Point of Care 143 (65-105)
--- NOTE | 2020-06-21 13:28 | PCDIET ---
Weekly nutritional screen. Patient is tolerating current diet, DBCC, which is appropriate, with adequate intake, 100% of lat five meals. No weight loss reported. 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 No nutritional needs at this time.
--- NOTE | 2020-06-21 15:49 | PM.IMPN ---
Progress Note: A&P Assessment and Plan (1) COVID-19: Code(s): U07.1 - COVID-19 Status: Acute Assessment and Plan: COVID positive. CTA shows patchy bilateral groundglass airspace disease without evidence of PE. Completed course of remdesivir. Continue dexamethasone (day 7). Continue supportive care with mucinex, albuterol PRN. (2) Acute respiratory failure with hypoxia: Code(s): J96.01 - Acute respiratory failure with hypoxia Status: Acute Assessment and Plan: Tolerating room air today for first time. Will monitor O2 saturations closely. Hopeful for discharge home tomorrow. (3) Hypothyroidism: Qualifiers: Hypothyroidism type: unspecified Qualified Code(s): E03.9 - Hypothyroidism, unspecified Code(s): E03.9 - Hypothyroidism, unspecified Status: Chronic Assessment and Plan: Maintained on home levothyroxine. (4) HTN (hypertension) with goal to be determined: Code(s): I10 - Essential (primary) hypertension Status: Chronic Assessment and Plan: Pressures have been elevated but are improved today. Her home Norvasc was increased. Continue with home imdur and irbesartan also. Monitor BP and adjust treatment as needed. (5) DM2 (diabetes mellitus, type 2): Qualifiers: Diabetes mellitus ad terminal makeup operator insulin use: without snf use Diabetes mellitus complication status: without complication Qualified Code(s): E11.9 - Type 2 diabetes mellitus without complications Code(s): E11.9 - Type 2 diabetes mellitus without complications Status: Chronic Assessment and Plan: A1c is 6.3. Home metformin is held. Continue to monitor with accu-cheks and cover with SSI. (6) UTI (urinary tract infection): Qualifiers: Urinary tract infection type: acute cystitis Hematuria presence: without hematuria Qualified Code(s): N30.00 - Acute cystitis without hematuria Code(s): N39.0 - Urinary tract infection, site not specified Status: Ruled-out Assessment and Plan: Patient has frequent UTIs. Urine culture was negative and antibiotics discontinued. Patient denies urinary symptoms today. Will monitor. (7) D-dimer, elevated: Code(s): R79.89 - Other specified abnormal findings of blood chemistry Status: Acute Assessment and Plan: Dimer elevated likely secondary to viral infection. CTA chest shows no evidence of PE. Venous dopplers with no evidence of DVT. Will decrease the Lovenox to DVT prophylaxis dosing for the remainder of her stay. Subjective Date/time seen: 06/21/20 1145 Interval history: Ms. Diaz is very pleasant 80yo F admitted for acute respiratory failure secondary to COVID pneumonia. She is feeling a bit better each day. Off oxygen for the first time today. She denies feeling any shortness of breath or chest pain. Appetite has been good today and she has tolerated oral intake without nausea or vomiting. She denies any urinary symptoms including dysuria, urgency, or hematuria. Observed her walk back and forth to the restroom independently without difficulty. Review of Systems Review of Systems: All systems reviewed & are unremarkable except as noted in HPI and below Exam Narrative: Exam Narrative: General: Elderly female resting comfortably sitting up on edge of bed in no acute distress. HEENT: Normocephalic, EOMI, oral mucosa moist. Cardiovascular: Rate and rhythm are regular. Respiratory: Decreased breath sounds SALOMON but clear to auscultation. Respirations are even and nonlabored. Tolerating room air at time of my encounter. Abdomen: Soft, non-tender, non-distended, bowel willard
[2020-06-21 17:34] LABS: Glucose Point of Care 299 (65-105)
[2020-06-21] MEDS: INSULIN ASPART (*BKC) 100 UNITS/ML SUB-Q (17:49)
[2020-06-21] MEDS: ENOXAPARIN 40 MG/0.4 ML SYRINGE SUB-Q (20:13)
[2020-06-22 01:10] LABS: Glucose Point of Care 300 (65-105)
[2020-06-22 01:31] VITALS: BP 140/58; PULSE 82; RESP 20; TEMP 36.9; O2SAT 95
[2020-06-22 05:25] VITALS: BP 149/69; PULSE 83; RESP 20; TEMP 37.2; O2SAT 95
[2020-06-22] MEDS: LEVOTHYROXINE SODIUM 75 MCG TABLET PO (05:59)
[2020-06-22 06:31] LABS: Basophils Absolute Auto 0.1 K/mm3 (0.0-0.1); Basophils Percent Auto 0.6 % (0.2-1.2); Eosinophils Absolute Auto 0.1 K/mm3 (0-0.3); Eosinophils Percent Auto 0.7 % (0-4.4); Hematocrit 35.5 % (37.0-47.0); Hemoglobin 11.7 g/dL (12.0-15.0); Immature Granulocyte Absolute 1.34 K/mm3 (0.00-0.031); Immature Granulocyte Percent A 7.1 % (0-0.5); Lymphocytes Absolute Auto 3.18 K/mm3 (0.9-3.2); Lymphocytes Percent Auto 16.8 % (18.3-44.2); Mean Corpuscular Hemoglobin 29.3 pg (26-34); Mean Corpuscular Volume 88.8 fl (80-100); Mean Platelet Volume 9.5 fl (7.4-10.4); Monocytes Absolute Auto 1.1 K/mm3 (0.1-0.6); Monocytes Percent Auto 5.6 % (2.6-8.5); Neutrophils Absolute Auto 13.1 K/mm3 (1.3-6.7); Neutrophils Percent Auto 69.2 % (45.5-73.1); Platelet Count Result 432 k/mm3 (150-375); Red Cell Distribution Width 14.1 % (11.5-14.5); White Blood Count 18.9 K/mm3 (4.5-10.0)
[2020-06-22 08:00] VITALS: BP 167/76; PULSE 84; RESP 18; TEMP 36.4; O2SAT 97
[2020-06-22 08:21] LABS: Glucose Point of Care 92 (65-105)
[2020-06-22] MEDS: DEXAMETHASONE SOD PHOS INJ 4 MG/ML VIAL 6 MG IV PUSH (08:54)
[2020-06-22] MEDS: IRBESARTAN 150 MG TABLET 300 MG PO (08:54)
[2020-06-22] MEDS: ENOXAPARIN 40 MG/0.4 ML SYRINGE SUB-Q (08:54)
[2020-06-22] MEDS: CYANOCOBALAMIN 1,000 MCG TABLET 1000 MCG PO (08:55)
[2020-06-22] MEDS: MULTIVITAMINS /C LUTEIN (CENTRUM SILVER) TABLET *BKC 1 TAB PO (08:55)
[2020-06-22] MEDS: amLODIPine BESYLATE 5 MG TABLET 10 MG PO (08:55)
[2020-06-22] MEDS: GABAPENTIN 100 MG CAPSULE PO ×2 (08:55→12:10)
[2020-06-22] MEDS: ISOSORBIDE MONONITRATE 30 MG TAB.ER.24H PO (08:55)
[2020-06-22] MEDS: guaiFENesin 12 HR 600 MG TABCR PO (08:55)
[2020-06-22] MEDS: MIRABEGRON 50 MG ER TABLET PO (08:55)
[2020-06-22] MEDS: polyethylene glycoL 3350 17 GM POWD.PACK PO (08:55)
[2020-06-22] MEDS: DOCUSATE SODIUM 100 MG CAPSULE PO (08:55)
--- NOTE | 2020-06-22 11:45 | PCNWS ---
Weekly nutritional screen. Patient is tolerating current diet with adequate intake. No weight loss reported. No nutritional needs at this time.
[2020-06-22 12:00] VITALS: BP 138/89; PULSE 88; RESP 18; TEMP 36.6; O2SAT 95
[2020-06-22 12:18] LABS: Glucose Point of Care 120 (65-105)
--- NOTE | 2020-06-22 13:39 | PM.DS ---
DS: Admitting Diagnosis Admitting Diagnosis Admitting Diagnosis: COVID DS: Discharge Diagnosis Discharge Diagnosis (1) COVID-19: Code(s): U07.1 - COVID-19 Status: Acute Assessment and Plan: Date of Admission 06/15/20 Date of Discharge/DOS 06/22/20 Ms. 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 CTA chest showed patchy bilateral groundglass opacities, without evidence of PE and she tested positive for COVID-19. She was treated here for acute respiratory failure secondary to COVID-19 pneumonia. She completed a 5-day course of Remdesivir and 8 days of dexamethasone. She was provided supportive care with supplemental oxygen, mucinex, and albuterol MDI. She slowly improved over the course of her admission and was tolerating room air with good oxygen saturations for over 24 hrs prior to discharge. Her blood pressures were elevated maintained on her home norvasc, imdur, and irbesartan. She was hemodynamically stable for discharge 06/22/20 with instructions to follow up with PCP. (2) Acute respiratory failure with hypoxia: Code(s): J96.01 - Acute respiratory failure with hypoxia Status: Acute Assessment and Plan: Secondary to above; resolved. Tolerating room air prior to discharge. (3) Hypothyroidism: Qualifiers: Hypothyroidism type: unspecified Qualified Code(s): E03.9 - Hypothyroidism, unspecified Code(s): E03.9 - Hypothyroidism, unspecified Status: Chronic Assessment and Plan: Maintained on home levothyroxine. (4) HTN (hypertension) with goal to be determined: Code(s): I10 - Essential (primary) hypertension Status: Chronic Assessment and Plan: Pressures have been elevated but are improved today. Continue norvasc, imdur and irbesartan. Follow up with PCP. (5) DM2 (diabetes mellitus, type 2): Qualifiers: Diabetes mellitus intermediate insulin use: without intermediate use Diabetes mellitus complication status: without complication Qualified Code(s): E11.9 - Type 2 diabetes mellitus without complications Code(s): E11.9 - Type 2 diabetes mellitus without complications Status: Chronic Assessment and Plan: A1c is 6.3. Home metformin was held but resumed at discharge. (6) UTI (urinary tract infection): Qualifiers: Urinary tract infection type: acute cystitis Hematuria presence: without hematuria Qualified Code(s): N30.00 - Acute cystitis without hematuria Code(s): N39.0 - Urinary tract infection, site not specified Status: Ruled-out Assessment and Plan: Patient has frequent UTIs. Urine culture was negative and antibiotics discontinued. Patient denies urinary symptoms today. (7) D-dimer, elevated: Code(s): R79.89 - Other specified abnormal findings of blood chemistry Status: Acute Assessment and Plan: Dimer elevated likely secondary to infection. CTA chest shows no evidence of PE. Venous dopplers with no evidence of DVT. DVT prophylaxis was with Lovenox. DS: Summary Time Spent with Patient Time attestation: Total time spent providing and/or coordinating discharge services: 35 minutes Exam Narrative: Exam Narrative: General: Elderly female resting comfortably sitting up on edge of bed in no acute distress. HEENT: Normocephalic, EOMI, oral mucosa moist. Cardiovascular: Rate and rhythm are regular. Respiratory: Decreased breath sounds SALOMON but clear to auscultat
== END 2020-06-22 15:00 | disposition home or self-care (01) | DRG 177 ==
PROVIDERS: Nurse Practitioner; Physician Assistant; Admitting Provider Internal Medicine; PCP Internal Medicine; Visit Provider Physician Assistant
DX: U07.1 COVID-19 (principal); J96.01 Acute respiratory failure with hypoxia; J12.89 Other viral pneumonia; Z66 Do not resuscitate; R35.0 Frequency of micturition; E03.9 Hypothyroidism, unspecified; E11.9 Type 2 diabetes mellitus without complications; R79.89 Other specified abnormal findings of blood chemistry; I10 Essential (primary) hypertension; K58.9 Irritable bowel syndrome, unspecified; M19.90 Unspecified osteoarthritis, unspecified site; D72.828 Other elevated white blood cell count; T38.0X5A Adverse effect of glucocorticoids and synthetic analogues, initial encounter; N32.81 Overactive bladder; Z87.891 Personal history of nicotine dependence; Z98.41 Cataract extraction status, right eye; Z90.710 Acquired absence of both cervix and uterus; Z98.42 Cataract extraction status, left eye
CPT/HCPCS: 36415; 71045; 71275; 80048; 80053; 80076; 81001; 82565; 82728; 83036; 83605; 83690; 83735; 84443; 84460; 85025; 85027; 85380; 86140; 87086; 93005; 93970; 97110; 97116; 97161; 97165; 97530; 97535; A9270; J0360; J0696; J1100; J1650; J1815; Q9967